=== PATIENT | female | born 2000 | race Caucasian/White ===

== ENCOUNTER 2024-05-01 18:55 | Emergency (ER) | payer OTHER, SELFPAY ==
--- NOTE | ~2024-05-01 | XR_ITS ---
EXAMINATION: XR shoulder RT min 2V DATE: 05/01/2024 19:31 INDICATION: Right shoulder pain. TECHNIQUE: 4 views of right shoulder were obtained. COMPARISON: None. FINDINGS: Alignment is normal. No fracture. Joint spaces are normal. IMPRESSION: 1. Normal right shoulder. Reviewed, dictated and finalized at location A. THCARE RISK CONTROL CONSULTANT IMPRESSION: 1. Normal right shoulder.
[2024-05-01 19:09] VITALS: BP 145/91; PULSE 66; RESP 18; TEMP 37; O2SAT 100
--- NOTE | 2024-05-01 19:12 | ED_ITS ---
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 Partner had their hand on her right upper arm area and she had her arm on her partners upper arm and when she was pulled forward she experienced some mild discomfort to her AC joint region. Patient reports that this morning when she arose she had discomfort to her right shoulder and as day has progressed when she raises right arm upward she has popping sensation and increased pain. Patient reports that she has not applied any ice or taken any OTC medication for her discomfort MD complaint: right shoulder pain Onset (ago): day(s) (little yesterday with increase today) Location: right and upper extremity (AC shoulder area) Radiation: non-radiation Severity: moderate Pain Consistency: intermittent Exacerbating factors: movement Treatments prior to arrival: none Related Data Allergies Allergy/AdvReac Type Severity Reaction Status Date / Time prednisone Allergy Unknown Verified 05/01/24 19:12 Review of Systems Review of Systems: CONSTITUTIONAL: Denies fever, chills, or sweats. EYES: Denies visual changes, redness, or discharge. ENT: Denies rhinorrhea, congestion, sore throat, or otalgia. CARDIOVASCULAR: Denies chest pain, palpitations, or edema. RESPIRATORY: Denies cough or dyspnea. GASTROINTESTINAL: Denies abdominal pain, nausea, vomiting, or diarrhea. GENITOURINARY: Denies dysuria or hematuria. SKIN: Denies rash or itching. MUSCULOSKELETAL: Denies back pain positive for right AC joint region pain especially with abduction of right arm, or myalgia. NEUROLOGIC: Denies headache, numbness, or weakness. PSYCHIATRIC: Denies anxiety or depression. All systems reviewed & are unremarkable except as noted in HPI and below [facility] Social History Social History (Updated 05/01/24 @ 19:56 by Rea Alvarez NP) Smoking status: Never smoker Alcohol intake: current Alcohol use details: social Substance use type: does not use Gender identity (if verbalized by the patient): Female Comments At time of signature, agree with nursing past medical, surgical, social and family history. There is no relevant family history pertinent to the presenting complaint Exam Narrative: GENERAL: Well-appearing, well-nourished, and in no acute distress. HEAD: Normocephalic, atraumatic. EYES: PERRLA and EOMI. ENT: Nares clear, no rhinorrhea or epistaxis. Mucous membranes moist. NECK: Supple. no lymphadenopathy CHEST: Clear to auscultation. No respiratory distress. no cough SAO2 100% on room air HEART: Regular rate and rhythm. No murmur heard. Normal peripheral pulses. ABDOMEN: Soft, nontender, nondistended, normal active bowel sounds. EXTREMITIES: Normal range of motion. No edema.Exception noted to right AC joint region with increase pain with abduction of right arm, no radiation of pain down arm or any tingling or numbness, strong right arm pulses noted, SKIN: Warm, dry, no rash. NEURO: No focal deficits. Alert and oriented x3. Course Course Emergency Course: Patient is aware of diagnosis, understands and agrees to treatment plan.? Anticipatory guidance given.? Patient agrees to follow-up as directed and is aware of reasons to seek care at the emergency department. Portions of this record may have been created with voice recognition software Level of Care: Express Care Visit Vital Signs Vital signs: Vital Signs Temperature 37.0 C 05/01/24 19:09 Pulse Rate 66 05/01/24 19:09 Respiratory Rate 18 05/01/24 19:09 Blood Pressure 145/91 H 05/01/24 19:09 Pulse Oximetry 100 05/01/24 19:09 Oxygen Delivery Room Air 05/01/24 19:09 Temperature 37.0 C 05/01/24 19:09 Pulse Rate 66 05/01/24 19:09 Respiratory Rate 18 05/01/24 19:09 Blood Pressure 145/91 H 05/01/24 19:09 Pulse Oximetry 100 05/01/24 19:09 Oxygen Delivery Room Air 05/01/24 19:09 Reviewed Medical Decision Making MDM Narrative Medical decision making narrative: Exam findings and imaging show no acute concerns or changes; patient is non- toxic appearing and is in no distress.? Patient is appropriate for outpatient treatment and follow-up Differential Diagnosis Differential Diagnosis: right shoulder pain, right shoulder strain, tendonitis right shoulder, fracture of right shoulder Medical Records Medical records reviewed: Yes I reviewed the external patient's medical records. Vital Signs Vital Signs: Vital Signs Temperature 37.0 C 05/01/24 19:09 Pulse Rate 66 05/01/24 19:09 Respiratory Rate 18 05/01/24 19:09 Blood Pressure 145/91 H 05/01/24 19:09 Pulse Oximetry 100 05/01/24 19:09 Oxygen Delivery Room Air 05/01/24 19:09 Temperature 37.0 C 05/01/24 19:09 Pulse Rate 66 05/01/24 19:09 Respiratory Rate 18 05/01/24 19:09 Blood Pressure 145/91 H 05/01/24 19:09 Pulse Oximetry 100 05/01/24 19:09 Oxygen Delivery Room Air 05/01/24 19:09 reviewed Imaging Data Attestation: I personally reviewed and interpreted this imaging study as follows: My impression: Normal right shoulder Radiologist's impression: [place] [address] [place] [address] XRay Report Signed Patient: Bravo Fall : 2000 MR#: [id number] Age: 23 Acct:[id number] Loc: [facility] ADM Date: 05/01/24Attending Dr: Ordering Physician: Rea Alvarez APRN Date of Service: 05/01/24 Procedure(s): XR shoulder RT min 2V Accession Number(s): [id number] cc: Rea Alvarez APRN; UNKNOWN,DOCTOR~ EXAMINATION: XR shoulder RT min 2V DATE: 05/01/2024 19:31 INDICATION: Right shoulder pain. TECHNIQUE: 4 views of right shoulder were obtained. COMPARISON: None. FINDINGS: Alignment is normal. No fracture. Joint spaces are normal. IMPRESSION: 1. Normal right shoulder. Reviewed, dictated and finalized at location A. TICING MD ANESTHESIOLOGIST Dictated By: Yamil Monet MD 12/13/24 1933 Signed By: <Electronically signed by Yamil Monet MD in OV> Critical Care Time Critical Care Time Critical Care Time: No Discharge Plan Discharge Clinical Impression: Right shoulder strain Patient Disposition: Home, Self-Care Condition: Stable Instructions: Antibiotic Form, Shoulder Pain (ED), Early Postoperative or Post Injury Shoulder Exercises (ED) Additional Instructions: Tylenol for lesser pain Ibuprofen regularly for the next 2-3 days for the inflammation Follow-up with orthopedic surgeon if no improvement Dr. Decker is ortho on- call [phone] Follow-up with PCP if further problems or concerns Ice to the area 20-30 minutes 4-6 times a day Elevate above heart Flexeril at bedtime only cannot drive while taking If your symptoms persist, change or worsen significantly before you can contact your personal physician then please, without delay, go to the emergency department for further evaluation. Follow-up with PCP in 7-10 days or sooner if needed Follow up with PCP soon in regards to your blood pressure which is elevated above threshold for referral. Blood pressure above 120/80 may indicate pre- hypertension. 145/91 Patient Language: Solomon Islander Prescriptions: New cyclobenzaprine 10 mg tablet 10 mg PO HS PRN (Reason: muscle spasm) Qty: 14 0RF Follow-up/Referrals: UNKNOWN,DOCTOR [Primary Care Provider] - Time of Disposition: 19:48 Quality Guillaume Coma Scale Eyes: Open Verbal: Oriented and Alert Motor: Follows Commands Jbphh Coma Total Score: 15
--- OUTSIDE RECORDS SUMMARY | 2024-05-05 13:27 | XMS_ITS | Encounter Summary ---
Author Organization [facility] Care Team Providers Care Chiropractic Care Name Role Phone Provider, Unknown Primary Care Provider Unavaila ble Encounter Details Date Type Department Care Team (Latest Contact Info) Description 12/03/2023 Travel Social History Tobacco Use Types Packs/Day Years Used Date Smoking Tobacco: Never Assessed Comments Unknown Sex and Gender Information Value Date Recorded Sex Assigned at Not on file Legal Sex Female 10:43 AM CDT Gender Identity Not on file Sexual Orientation Not on file documented as of this encounter Plan of Treatment Not on file documented as of this encounter Visit Diagnoses Not on filedocumented in this encounter Care Teams Chiropractic Care Relationship Specialty Start Date End Date Provider, Unknown UNKNOWN PCP - General 12/03/23 documented as of this encounter
--- OUTSIDE RECORDS SUMMARY | 2024-05-05 13:27 | XMS_ITS | Encounter Summary ---
Author Organization [facility] Care Team Providers Care Shale Planer Operator Name Role Phone Provider, Unknown Primary Care Provider Unavaila ble Encounter Details Date Type Department Care Team (Latest Contact Info) Description 05/02/2024 Travel Social History Tobacco Use Types Packs/Day Years Used Date Smoking Tobacco: Never Smokeless Tobacco: Never Alcohol Use Standard Drinks/Week Comments Not Currently 0 (1 standard drink = 0.6 oz pur e alcohol) Comments No Sex and Gender Information Value Date Recorded Sex Assigned at Not on file Legal Sex Female 10:43 AM CDT Gender Identity Not on file Sexual Orientation Not on file documented as of this encounter Plan of Treatment Not on file documented as of this encounter Visit Diagnoses Not on filedocumented in this encounter Care Teams Shale Planer Operator Relationship Specialty Start Date End Date Provider, Unknown UNKNOWN PCP - General 12/03/23 documented as of this encounter
--- OUTSIDE RECORDS SUMMARY | 2024-05-05 13:27 | XMS_ITS | Encounter Summary ---
Author Organization [facility] Address [address] [place] [address] Phone Care Team Providers Care Research Specialist Name Role Phone Provider, Unknown Primary Care Provider Unavaila ble Reason for Visit * Reason Comments Shoulder Pain Encounter Details Date Type Department Care Team (Late st Contact Info) Description 05/02/2024 8:59 PM DIRT SHOVELER - 05/02/2024 10:37 PM DIRT SHOVELER Emergency [facility] Emergency [address] [place] [address] Montez Damian MD [address] [place] [address] Strain of right shoulder, initial encounter Discharge Disposition: Discharged to home or Selfcare Social History Tobacco Use Types Packs/Day Years Used Date Smoking Tobacco: Never Smokeless Tobacco: Never Tobacco Cessation:Counseling Given: Not Answered Alcohol Use Standard Drinks/Week Comments Not Currently 0 (1 standard drink = 0.6 oz pur e alcohol) Comments No Sex and Gender Information Value Date Recorded Sex Assigned at Not on file Legal Sex Female 10:43 AM CDT Gender Identity Not on file Sexual Orientation Not on file documented as of this encounter Last Filed Vital Signs Vital Sign Reading Time Taken Comments Blood Pressure 122/84 05/02/2024 10:30 PM DIRT SHOVELER Pulse 60 05/02/2024 10:30 PM DIRT SHOVELER Temperature 36.6 ??C (97.9 ??F) 05/02/2024 10:[address] Respiratory Rate 16 05/02/2024 10:30 PM DIRT SHOVELER Oxygen Saturation 100% 05/02/2024 10:30 PM DIRT SHOVELER Inhaled Oxygen Concentration - - Weight 54.4 kg (120 lb) 05/02/2024 9:03 PM DIRT SHOVELER Height 152.4 cm (5') 05/02/2024 9:03 PM DIRT SHOVELER Body Mass Index 23.44 05/02/2024 9:03 PM DIRT SHOVELER documented in this encounter Discharge Instructions * Discharge Instructions* Montez Damian MD - 05/02/2024 10:18 PM DIRT SHOVELER Wear the sling for protection and comfort. Follow up with your regular doctor this coming week for recheck. Take naproxen as directed. Watch her stomach for any side effects. SHOVELER * Attachments The following attachments cannot be sent through Care Everywhere. * Muscle Strain (Upper [place]) documented in this encounter Medications at Time of Discharge naproxen (NAPROSYN) 375 MG Tablet Take 1 Tablet by mouth 2 times daily (with meals). 30 Tablet 05/02/2024 documented as of this encounter ED Notes * Tony Daniels RN - 05/02/2024 10:35 PM CST Patient discharged. Discharge instructions and patient educational material reviewed with patient; questions and concerns addressed; patient verbalizes understanding, using teach back. Patient was given 1 prescriptions. . Patient discharged per ambulatory mode with self as responsible green party. SHOVELER * Montez Damian MD - 05/02/2024 10:09 PM CST Chief Complaint Patient presents with Shoulder Pain Patient was a 23-year-old female who injured her right upper arm doing exercises at her workplace. She was states she felt a pop type sensation and now he was having pain with any movement. She has not noticed any deformity or swelling. There is no distal numbness present. No current facility-administered medications for this encounter. Current Outpatient Medications Medication Sig Dispense Refill naproxen (NAPROSYN) 375 MG Tablet Take 1 Tablet by mouth 2 times daily (with meals). 30 Tablet 0 Allergies Allergen Reactions Prednisone Rash History reviewed. No pertinent past medical history. No past surgical history on file. Social History Socioeconomic History Marital status: Single Spouse name: Not on file Number of children: Not on file Years of education: Not on file Highest education level: Not on file Occupational History Not on file Tobacco Use Smoking status: Never Smokeless tobacco: Never Substance and Sexual Activity Alcohol use: Not Currently Drug use: Never Sexual activity: Not on file Other Topics Concern Not on file Social History Narrative Not on file Social Drivers of Health Financial Resource Needs: Not on file Food Insecurity Needs: Not on file Transportation Needs: Not on file Physical Activity: Not on file Stress: Not on file Social Integration: Not on file Personal Safety: Not on file Housing Stability: Not on file BP 119/73 Pulse 55 Temp 97.7 ??F (36.5 ??C) (Tympanic) Resp 16 Ht 5' (1.524 m) Wt 120 lb (54.4 kg) LMP 05/02/2024 SpO2 100% BMI 23.44 kg/m?? Review of Systems Constitutional: Negative for chills and fever. HENT: Negative for congestion, ear pain, rhinorrhea and sore throat. Eyes: Negative for discharge. Respiratory: Negative for cough, chest tightness, shortness of breath and wheezing. Cardiovascular: Negative for chest pain and palpitations. Gastrointestinal: Negative for abdominal pain, diarrhea, nausea and vomiting. Genitourinary: Negative for difficulty urinating and menstrual problem. Musculoskeletal: Positive for arthralgias (right shoulder). Negative for myalgias. Skin: Negative for rash and wound. Neurological: Negative for dizziness, syncope, numbness and headaches. All other systems reviewed and are negative. Physical Exam Vitals and nursing note reviewed. Constitutional: General: She is not in acute distress. Appearance: She is well-developed. She is not diaphoretic. HENT: Head: Normocephalic and atraumatic. Eyes: Conjunctiva/sclera: Conjunctivae normal. Pupils: Pupils are equal, round, and reactive to light. Cardiovascular: Rate and Rhythm: Normal rate and regular rhythm. Heart sounds: Normal heart sounds. No murmur heard. No friction rub. No gallop. Pulmonary: Effort: Pulmonary effort is normal. No respiratory distress. Breath sounds: Normal breath sounds. No wheezing or rales. Abdominal: General: Bowel sounds are normal. There is no distension. Palpations: Abdomen is soft. Tenderness: There is no abdominal tenderness. There is no guarding or rebound. Musculoskeletal: General: No deformity. Right shoulder: Tenderness present. No swelling or deformity. Decreased range of motion. Normal pulse. Right upper arm: Tenderness and bony tenderness present. Cervical back: Normal range of motion and neck supple. Lymphadenopathy: Cervical: No cervical adenopathy. Skin: General: Skin is warm and dry. Coloration: Skin is not pale. Findings: No erythema or rash. Neurological: Mental Status: She is alert and oriented to person, place, and time. Psychiatric: Behavior: Behavior normal. Thought Content: Thought content normal. Judgment: Judgment normal. Procedures Patient was right upper extremity he was placed in a sling for comfort by the certified orthotist.. Post application evaluation revealed normal color, sensation, and capillary refill. No results found for this or any previous visit (from the past 24 hours). Imaging Results XR SHOULDER COMPLETE RIGHT (Final result) Result time 05/02/24 21:51:44 Final result by Home Valerio MD (05/02/24 21:51:44) Impression: IMPRESSION: Negative exam. Narrative: EXAM DESCRIPTION: XR SHOULDER COMPLETE RIGHT REASON FOR STUDY: pt c/o RT shoulder pain after some hands on training x 3 days. pt states her shoulder pops with movement. no hx of surgery TECHNIQUE: 4 view(s) of the right shoulder COMPARISON: None FINDINGS: There is no fracture or dislocation. No arthritis were seen. THIS IS AN ELECTRONICALLY VERIFIED FINAL REPORT 05/02/2024 9:49 PM - Electronically signed by Tripp Valerio M.D. LAKESHA: LAKESHA Report ID: [id number] Reading Location: [place] [address] Medical Decision Making Clinical Impression 1. Strain of right shoulder, initial encounter Disposition: Discharge Patient presents emergency room with right shoulder pain after an injury at work. X-rays of the right shoulder were unremarkable. This injury appears to be a sprain or strain type injury. I explainedthis to the patient. Will place her in a sling for comfort and give her a prescription for an anti-inflammatory. I advised her to follow up with her primary care provider for recheck this coming week. SHOVELER * Tony Daniels RN - 05/02/2024 9:30 PM CST Patient ambulatory to Xray. SHOVELER * Tony Daniels RN - 05/02/2024 9:19 PM CST Patient assessed. Range of motion to right arm limited and patient endorses 5/10 pain with movement. SHOVELER * Gretel Armenta RN - 05/02/2024 9:07 PM CST Pt to ED with c/o right shoulder pain 3 days. Denies any recent injuries. States she did do some hands on training for work this week. Reports she feel a pop when she moves her arm. PMS + SHOVELER documented in this encounter Plan of Treatment Not on file documented as of this encounter Procedures Procedure Name Priority Date/Time Associated Diagnosis Comments XR SHOULDER COMPLETE RIGHT STAT 05/02/2024 9:37 PM DIRT SHOVELER documented in this encounter Results * XR SHOULDER COMPLETE RIGHT (05/02/2024 9:37 PM DIRT SHOVELER) Anatomical Region Laterality Modality UPPER EXTREMITY, shoulder Right Digita l Radiography 05/02/2024 9:49 PM DIRT SHOVELER Impressions 05/02/2024 9:51 PM DIRT SHOVELER IMPRESSION: Negative exam. Narrative 05/02/2024 9:51 PM DIRT SHOVELER EXAM DESCRIPTION: XR SHOULDER COMPLETE RIGHT REASON FOR STUDY: pt c/o RT shoulder pain after some hands on training x 3 days. pt states her shoulder pops with movement. no hx of surgery ?? TECHNIQUE: 4 ??view(s) of the ??right shoulder COMPARISON: None FINDINGS: There is no fracture or dislocation. ??No arthritis were seen. THIS IS AN ELECTRONICALLY VERIFIED FINAL REPORT 05/02/2024 9:49 PM - Electronically signed by ??Tripp Valerio M.D. LAKESHA: LAKESHA D: ??05/02/2024 9:49 PM T: ??05/02/2024 9:49 PM Report ID: [id number] Reading Location: ??[id number] Procedure Note Home Valerio MD - 05/02/2024 EXAM DESCRIPTION: XR SHOULDER COMPLETE RIGHT REASON FOR STUDY: pt c/o RT shoulder pain after some hands on training x 3 days. pt states her shoulder pops with movement. no hx of surgery TECHNIQUE: 4 view(s) of the right shoulder COMPARISON: None FINDINGS: There is no fracture or dislocation. No arthritis were seen. THIS IS AN ELECTRONICALLY VERIFIED FINAL REPORT 05/02/2024 9:49 PM - Electronically signed by Tripp Valerio M.D. LAKESHA: LAKESHA Report ID: [id number] Reading Location: [id number] IMPRESSION: Negative exam. Montez Damian MD [facility] DIAGNOSTIC ORDERABLES Final Result documented in this encounter Visit Diagnoses Diagnosis Strain of right shoulder, initial encounter- Primary documented in this encounter Care Teams Research Specialist Relationship Specialty Start Date End Date Provider, Unknown UNKNOWN PCP - General 12/03/23 documented as of this encounter
--- OUTSIDE RECORDS SUMMARY | 2024-05-05 13:27 | XMS_ITS | Clinical Summary ---
Author Organization [facility] Address [address] [place] [address] Phone Care Team Providers Care Photo Studio Assistant Name Role Phone Provider, Unknown Primary Care Provider Unavaila ble Allergies Active Allergy Reactions Criticality Noted Date Comments Prednisone Rash 05/02/2024 Medications naproxen (NAPROSYN) 375 MG Tablet Take 1 Tablet by mouth 2 times daily (with meals). 30 Tablet 05/02/2024 Active Encounters Date Type Department Care Team Description 05/02/2024 8:59 PM EAR NOSE AND THROAT SPECIALIST - 05/02/2024 10:37 PM EAR NOSE AND THROAT SPECIALIST Emergency [facility] Emergency [address] [place] [address] Montez Damian MD Strain of right shoulder, initial encounter Discharge Disposition: Discharged to home or Selfcare 05/02/2024 Travel from Last 3 Months Social History Tobacco Use Types Packs/Day Years [...] on file Sexual Orientation Not on file Last Filed Vital Signs Vital Sign Reading Time Taken Comments Blood Pressure 122/84 05/02/2024 10:30 PM EAR NOSE AND THROAT SPECIALIST Pulse 60 05/02/2024 10:30 PM EAR NOSE AND THROAT SPECIALIST Temperature 36.6 ??C (97.9 ??F) 05/02/2024 10:[address] Respiratory Rate 16 05/02/2024 10:30 PM EAR NOSE AND THROAT SPECIALIST Oxygen Saturation 100% 05/02/2024 10:30 PM EAR NOSE AND THROAT SPECIALIST Inhaled Oxygen Concentration - - Weight 54.4 kg (120 lb) 05/02/2024 9:03 PM EAR NOSE AND THROAT SPECIALIST Height 152.4 cm (5') 05/02/2024 9:03 PM EAR NOSE AND THROAT SPECIALIST Body Mass Index 23.44 05/02/2024 9:03 PM EAR NOSE AND THROAT SPECIALIST Plan of Treatment Health Maintenance Due Date Last Done Comments Hepatitis C Virus (HCV) Screening 2001 Pap Smear 2022 Influenza Immunization (#1) 2024 SARS-COV-2 Immunization ( season) 2024 01/06/2021, 12/16/2020 Respiratory Syncytial Virus (RSV) Immunization (Adult) (1 - 1-dose 75+ series) 2076 Hepatitis B Immunization Completed 003, 02/05/2002, 2001 Pneumococcal Immunization Combined Completed 10/27/2002, 08/03/2002, 04/13/2002, Additional history exists Human Papillomavirus (HPV) Immunization Completed 07/09/2016, 01/31/2016, 11/22/2015 Meningococcal Immunization (ACWY) Completed 12/03/2018, 12/08/2012 Meningococcal B Immunization Completed 01/10/2019, 12/03/2018 TdaP Immunization Completed 01/17/2022, 12/08/2012 Rotavirus Immunization Aged Out No lo nger eligible based on patient's age to complete this topic Procedures Procedure Name Priority Date/Time Associated Diagnosis Comments XR SHOULDER COMPLETE RIGHT STAT 05/02/2024 9:37 PM EAR NOSE AND THROAT SPECIALIST from Last 3 Months Results * XR SHOULDER COMPLETE RIGHT (05/02/2024 9:37 PM EAR NOSE AND THROAT SPECIALIST) Anatomical Region Laterality Modality UPPER EXTREMITY, shoulder Right Digita l Radiography 05/02/2024 9:49 PM EAR NOSE AND THROAT SPECIALIST Impressions 05/02/2024 9:51 PM EAR NOSE AND THROAT SPECIALIST IMPRESSION: Negative exam. Narrative 05/02/2024 9:51 PM EAR NOSE AND THROAT SPECIALIST EXAM DESCRIPTION: XR SHOULDER COMPLETE RIGHT REASON [...] PM T: ??05/02/2024 9:49 PM Report ID: [id number] Reading Location: ??[id number] Procedure Note Home Valerio MD - 05/02/2024 [...] Tripp Valerio M.D. LAKESHA: LAKESHA Report ID: [id number] Reading Location: [id number] IMPRESSION: Negative exam. Montez Damian MD IMG DIAGNOSTIC ORDERABLES Final Result from Last 3 Months Care Teams Photo Studio Assistant Relationship Specialty Start Date End Date Provider, Unknown UNKNOWN PCP - General 12/03/23
--- OUTSIDE RECORDS SUMMARY | 2024-05-05 13:28 | XMS_ITS | Encounter Summary ---
Author Organization [facility] Address [address] [place] [address] Phone Care Team Providers Care Ui Engineer Name Role Phone Provider, Unknown Primary Care Provider Unavaila ble Reason for Referral * Radiology Services (Routine) - Closed Specialty Diagnoses / Procedures Referred By Contac t Referred To Contact Radiology Diagnoses Physical exam, pre-employment Procedures XR CHEST SINGLE VIEW Isaías Calderon [address] [address] Phone: tel: fax: Referral ID Status Reason Start Date Expiration Date Visits Re quested Visits Authorized [id number] Closed 12/03/2023 1 1 Reason for Visit * Radiology Services (Routine) - Closed Specialty Diagnoses / Procedures Referred By Contac t Referred To Contact Radiology Diagnoses Physical exam, pre-employment Procedures XR CHEST SINGLE VIEW Isaías Calderon [address] [address] Phone: tel: fax: Referral ID Status Reason Start Date Expiration Date Visits Re quested Visits Authorized [id number] Closed 12/03/2023 1 1 Encounter Details Date Type Department Care Team (Late st Contact Info) Description 12/03/2023 11:03 AM CDT Hospital Encounter [facility] Diagnostic Radiology [address] [place] [address] Isaías Calderon [address] [facility] [address] [place] [address] Discharge Disposition: Discharged to home or Selfcare [...] Name Priority Date/Time Associated Diagnosis Comments XR CHEST SINGLE VIEW Routine 12/03/2023 12:02 PM CDT Physical exam, pre-employment documented in this encounter Results * XR CHEST SINGLE VIEW (12/03/2023 12:02 PM CDT) Anatomical Region Laterality Modality Chest N/A Digital Radiogra phy 12/05/2023 8:22 AM CDT Impressions 12/05/2023 8:25 AM CDT IMPRESSION: No radiographic evidence of acute cardiopulmonary disease Narrative 12/05/2023 8:25 AM CDT EXAM DESCRIPTION: XR CHEST SINGLE VIEW REASON FOR STUDY: Physical exam for new emplyment ?? TECHNIQUE: Single ??radiographic view(s) of the chest. COMPARISON: None FINDINGS: The heart appears normal in size. ??No airspace consolidation or pleural effusion is seen. ?? THIS IS AN ELECTRONICALLY VERIFIED FINAL REPORT 12/05/2023 8:22 AM - Electronically signed by ??Yifan Allan M.D., JR: D: ??12/05/2023 8:22 AM T: ??12/05/2023 8:22 AM Report ID: [id number] Reading Location: ??[id number] Procedure Note Yifan Allan MD - 12/05/2023 EXAM DESCRIPTION: XR CHEST SINGLE VIEW REASON FOR STUDY: Physical exam for new emplyment TECHNIQUE: Single radiographic view(s) of the chest. COMPARISON: None FINDINGS: The heart appears normal in size. No airspace consolidation or pleural effusion is seen. THIS IS AN ELECTRONICALLY VERIFIED FINAL REPORT 12/05/2023 8:22 AM - Electronically signed by Yifan Allan M.D. JR: Report ID: [id number] Reading Location: [place] [address] IMPRESSION: No radiographic evidence of acute cardiopulmonary disease us Isaías HER DIAGNOSTIC ORDERABLES F inal Result documented in this encounter Visit Diagnoses Diagnosis Physical exam, pre-employment Health examination of defined subpopulation documented in this encounter Care Teams Ui Engineer Relationship Specialty Start Date End Date Provider, Unknown UNKNOWN PCP - General 12/03/23 documented as of this encounter
--- OUTSIDE RECORDS SUMMARY | 2024-05-05 13:28 | XMS_ITS | Encounter Summary ---
Author Organization [facility] Address [address] [place] [address] Phone Care Team Providers Care Senior Visual Designer Name Role Phone Provider, Unknown Primary Care Provider Unavaila ble Reason for Referral * Radiology Services (Routine) - Closed Specialty Diagnoses / Procedures Referred By Contac t Referred To Contact Radiology Diagnoses Physical exam, pre-employment Procedures XR LUMBAR SPINE 2 OR 3 VIEWS Isaías Calderon [address] [address] Phone: tel: fax: Referral ID Status Reason Start Date Expiration Date Visits Re quested Visits Authorized [id number] Closed 12/03/2023 1 1 Reason for Visit * Radiology Services (Routine) - Closed Specialty Diagnoses / Procedures Referred By Contac t Referred To Contact Radiology Diagnoses Physical exam, pre-employment Procedures XR LUMBAR SPINE 2 OR 3 VIEWS Isaías Calderon [address] [address] Phone: tel: fax: Referral ID Status Reason Start Date Expiration Date Visits Re quested Visits Authorized [id number] Closed 12/03/2023 1 1 Encounter Details Date Type Department Care Team (Late st Contact Info) Description 12/03/2023 11:04 AM CDT - 12/03/2023 11:59 PM CDT Hospital Encounter [facility] Diagnostic Radiology 1 [place] [address] YumikoIsaías Khanh [address] [place] [address] Discharge Disposition: Discharged to home or Selfcare [...] Name Priority Date/Time Associated Diagnosis Comments XR LUMBAR SPINE 2 OR 3 VIEWS Routine 12/03/2023 12:01 PM CDT Physical exam, pre-employment documented in this encounter Results * XR LUMBAR SPINE 2 OR 3 VIEWS (12/03/2023 12:01 PM CDT) Anatomical Region Laterality Modality Spine, L-spine N/A Digital Radiogra phy 12/04/2023 12:1 8 PM CDT Impressions 12/04/2023 12:20 PM CDT IMPRESSION: Normal lumbar spine evaluation. Narrative 12/04/2023 12:20 PM CDT EXAM DESCRIPTION: XR LUMBAR SPINE 2 OR 3 VIEWS REASON FOR STUDY: Physical exam for new employment ?? FINDINGS: Three views submitted without comparison. No acute fractures are identified. ??Alignment is normal. ??The intervertebral disc space heights are normal. THIS IS AN ELECTRONICALLY VERIFIED FINAL REPORT 12/04/2023 12:18 PM - Electronically signed by ??Richie Lyn M.D. MF: MIAN D: ??12/04/2023 12:18 PM T: ??12/04/2023 12:18 PM Report ID: [id number] Reading Location: ??[id number] Procedure Note Richie Lyn MD - 12/04/2023 EXAM DESCRIPTION: XR LUMBAR SPINE 2 OR 3 VIEWS REASON FOR STUDY: Physical exam for new employment FINDINGS: Three views submitted without comparison. No acute fractures are identified. Alignment is normal. The intervertebral disc space heights are normal. THIS IS AN ELECTRONICALLY VERIFIED FINAL REPORT 12/04/2023 12:18 PM - Electronically signed by Richie Lyn M.D. MF: MIAN Report ID: [id number] Reading Location: [id number] IMPRESSION: Normal lumbar spine evaluation. Isaías HER DIAGNOSTIC ORDERABLES F inal Result documented in this encounter Visit Diagnoses Diagnosis Physical exam, pre-employment Health examination of defined subpopulation documented in this encounter Care Teams Senior Visual Designer Relationship Specialty Start Date End Date Provider, Unknown UNKNOWN PCP - General 12/03/23 documented as of this encounter
--- OUTSIDE RECORDS SUMMARY | 2024-05-05 13:28 | XMS_ITS | Encounter Summary ---
Author Organization [facility] Address [address] [place] [address] Phone Care Team Providers Care Olericulturist Name Role Phone Provider, Unknown Primary Care Provider Unavaila ble Reason for Referral * Radiology Services (Routine) - Closed Specialty Diagnoses / Procedures Referred By Contac t Referred To Contact Radiology Diagnoses Physical exam, pre-employment Procedures XR LUMBAR SPINE 2 OR 3 VIEWS Isaías Calderon [address] [address] Phone: tel: fax: Referral ID Status Reason Start Date Expiration Date Visits Re quested Visits Authorized [id number] Closed 12/03/2023 1 1 * Radiology Services (Routine) - Closed Specialty Diagnoses / Procedures Referred By Contac t Referred To Contact Radiology Diagnoses Physical exam, pre-employment Procedures XR CHEST SINGLE VIEW Isaías Calderon [address] [address] Phone: tel: fax: Referral ID Status Reason Start Date Expiration Date Visits Re quested Visits Authorized [id number] Closed 12/03/2023 1 1 Encounter Details Date Type Department Care Team (Late st Contact Info) Description 12/03/2023 Transcribe Orders [facility] Patient Access Admitting 1 [place] [address] Isaías Calderon [address] [facility] [address] [place], [place] [id number] Physical exam, pre-employment (Primary Dx) Social History Tobacco Use Types Packs/Day Years Used Date Smoking Tobacco: Never Assessed Comments Unknown Sex and Gender Information Value Date Recorded Sex Assigned at Not on file Legal Sex Female 10:43 AM CDT Gender Identity Not on file Sexual Orientation Not on file documented as of this encounter Plan of Treatment Not on file documented as of this encounter Results * XR CHEST SINGLE [...] AM - Electronically signed by ??Yifan Allan M.D. JR: D: ??12/05/2023 8:22 AM T: ??12/05/2023 8:22 AM Report ID: [id number] Reading Location: ??[id number] Procedure Note Yifan Allan MD - 12/05/2023 [...] by Yifan Allan M.D. JR: Report ID: [id number] Reading Location: [id number] IMPRESSION: No radiographic evidence of acute cardiopulmonary disease us Panayiotis A Yumiko IMG DIAGNOSTIC ORDERABLES F inal Result * XR LUMBAR SPINE 2 OR 3 [...] 12:18 PM - Electronically signed by ??Richie PAPPAS: MIAN D: ??12/04/2023 12:18 PM T: ??12/04/2023 12:18 PM Report ID: [id number] Reading Location: ??[id number] Procedure Note Richie Lyn MD - 12/04/2023 EXAM DESCRIPTION: XR LUMBAR SPINE 2 OR 3 VIEWS REASON FOR STUDY: Physical exam for new employment FINDINGS: Three views submitted without comparison. No acute fractures are identified. Alignment is normal. The intervertebral disc space heights are normal. THIS IS AN ELECTRONICALLY VERIFIED FINAL REPORT 12/04/2023 12:18 PM - Electronically signed by Richie Lyn M.D. MF: MF Report ID: [id number] Reading Location: [id number] IMPRESSION: Normal lumbar spine evaluation. Isaías Calderon Kathryn DIAGNOSTIC ORDERABLES F inal Result documented in this encounter Visit Diagnoses Diagnosis Physical exam, pre-employment- Primary Health examination of defined subpopulation Physical exam, pre-employment Health examination of defined subpopulation Physical exam, pre-employment Health examination of defined subpopulation documented in this encounter Care Teams Olericulturist Relationship Specialty Start Date End Date Provider, Unknown UNKNOWN PCP - General 12/03/23 documented as of this encounter
--- OUTSIDE RECORDS SUMMARY | 2024-05-05 13:51 | XMS_ITS | Clinical Summary ---
Author Organization [facility] Address [address] [place] [address] Phone Care Team Providers Care Pole Shaver Helper Name Role Phone Provider, Unknown Primary Care Provider Unavaila ble Allergies Active Allergy Reactions Criticality Noted Date Comments Prednisone Rash 05/02/2024 Medications naproxen (NAPROSYN) 375 MG Tablet Take 1 Tablet by mouth 2 times daily (with meals). 30 Tablet 05/02/2024 Active Encounters Date Type Department Care Team Description 05/02/2024 8:59 PM MALT HOUSE KILN OPERATOR - 05/02/2024 10:37 PM MALT HOUSE KILN OPERATOR Emergency [facility] [address] [place] [address] Montez Damian MD Strain of right shoulder, [...] Comments Blood Pressure 122/84 05/02/2024 10:30 PM MALT HOUSE KILN OPERATOR Pulse 60 05/02/2024 10:30 PM MALT HOUSE KILN OPERATOR Temperature 36.6 ??C (97.9 ??F) 05/02/2024 10:[address] Respiratory Rate 16 05/02/2024 10:30 PM MALT HOUSE KILN OPERATOR Oxygen Saturation 100% 05/02/2024 10:30 PM MALT HOUSE KILN OPERATOR Inhaled Oxygen Concentration - - Weight 54.4 kg (120 lb) 05/02/2024 9:03 PM MALT HOUSE KILN OPERATOR Height 152.4 cm (5') 05/02/2024 9:03 PM MALT HOUSE KILN OPERATOR Body Mass Index 23.44 05/02/2024 9:03 PM MALT HOUSE KILN OPERATOR Plan of Treatment Health Maintenance Due Date [...] SHOULDER COMPLETE RIGHT STAT 05/02/2024 9:37 PM MALT HOUSE KILN OPERATOR from Last 3 Months Results * XR SHOULDER COMPLETE RIGHT (05/02/2024 9:37 PM MALT HOUSE KILN OPERATOR) Anatomical Region Laterality Modality UPPER EXTREMITY, shoulder Right Digita l Radiography 05/02/2024 9:49 PM MALT HOUSE KILN OPERATOR Impressions 05/02/2024 9:51 PM MALT HOUSE KILN OPERATOR IMPRESSION: Negative exam. Narrative 05/02/2024 9:51 PM MALT HOUSE KILN OPERATOR EXAM DESCRIPTION: XR SHOULDER COMPLETE RIGHT REASON [...] PM T: ??05/02/2024 9:49 PM Report ID: [id number] Reading Location: ??[id number] Procedure Note Home Valerio MD - 05/02/2024 [...] Tripp Valerio M.D. LAKESHA: LAKESHA Report ID: [id number] Reading Location: [id number] IMPRESSION: Negative exam. Montez Damian MD IMG DIAGNOSTIC ORDERABLES Final Result from Last 3 Months Care Teams Pole Shaver Helper Relationship Specialty Start Date End Date Provider, Unknown UNKNOWN PCP - General 12/03/23
--- OUTSIDE RECORDS SUMMARY | 2024-05-05 13:52 | XMS_ITS | Encounter Summary ---
Author Organization [facility] Address [address] [place] [address] Phone Care Team Providers Care Hybrid Car Mechanic Name Role Phone Provider, Unknown Primary Care Provider Unavaila ble Reason for Visit * Reason Comments Shoulder Pain Encounter Details Date Type Department Care Team (Late st Contact Info) Description 05/02/2024 8:59 PM DIETETIC AIDE - 05/02/2024 10:37 PM DIETETIC AIDE Emergency [facility] Emergency 1 [place] [address] Montez Damian MD [address] [place] [address] Strain of right shoulder, initial encounter Discharge [...] Comments Blood Pressure 122/84 05/02/2024 10:30 PM DIETETIC AIDE Pulse 60 05/02/2024 10:30 PM DIETETIC AIDE Temperature 36.6 ??C (97.9 ??F) 05/02/2024 10:[address] Respiratory Rate 16 05/02/2024 10:30 PM DIETETIC AIDE Oxygen Saturation 100% 05/02/2024 10:30 PM DIETETIC AIDE Inhaled Oxygen Concentration - - Weight 54.4 kg (120 lb) 05/02/2024 9:03 PM DIETETIC AIDE Height 152.4 cm (5') 05/02/2024 9:03 PM DIETETIC AIDE Body Mass Index 23.44 05/02/2024 9:03 PM DIETETIC AIDE documented in this encounter Discharge Instructions * Discharge Instructions* Montez Damian MD - 05/02/2024 10:18 PM DIETETIC AIDE Wear the sling for protection and comfort. Follow up with your regular doctor this coming week for recheck. Take naproxen as directed. Watch her stomach for any side effects. ETIC AIDE * Attachments The following attachments cannot be sent through Care Everywhere. * Muscle Strain (Malay) documented in this encounter Medications at Time [...] per ambulatory mode with self as responsible alliance party. ETIC AIDE * Montez Damian MD - 05/02/2024 10:09 [...] a sling for comfort by the certified orthotic fitter.. Post application evaluation revealed normal color, sensation, [...] Tripp Valerio M.D. LAKESHA: LAKESHA Report ID: [id number] Reading Location: [place] [address] Medical Decision Making Clinical Impression 1. Strain [...] care provider for recheck this coming week. ETIC AIDE * Tony Daniels RN - 05/02/2024 9:30 PM CST Patient ambulatory to Xray. ETIC AIDE * Tony Daniels RN - 05/02/2024 9:19 PM CST Patient assessed. Range of motion to right arm limited and patient endorses 5/10 pain with movement. ETIC AIDE * Gretel Armenta RN - 05/02/2024 9:07 PM CST Pt to ED with c/o right shoulder pain 3 days. Denies any recent injuries. States she did do some hands on training for work this week. Reports she feel a pop when she moves her arm. PMS + ETIC AIDE documented in this encounter Plan of Treatment Not on file documented as of this encounter Procedures Procedure Name Priority Date/Time Associated Diagnosis Comments XR SHOULDER COMPLETE RIGHT STAT 05/02/2024 9:37 PM DIETETIC AIDE documented in this encounter Results * XR SHOULDER COMPLETE RIGHT (05/02/2024 9:37 PM DIETETIC AIDE) Anatomical Region Laterality Modality UPPER EXTREMITY, shoulder Right Digita l Radiography 05/02/2024 9:49 PM DIETETIC AIDE Impressions 05/02/2024 9:51 PM DIETETIC AIDE IMPRESSION: Negative exam. Narrative 05/02/2024 9:51 PM DIETETIC AIDE EXAM DESCRIPTION: XR SHOULDER COMPLETE RIGHT REASON [...] PM T: ??05/02/2024 9:49 PM Report ID: [id number] Reading Location: ??[id number] Procedure Note Home Valerio MD - 05/02/2024 [...] Tripp Valerio M.D. LAKESHA: LAKESHA Report ID: [id number] Reading Location: [id number] IMPRESSION: Negative exam. Montez Damian MD [facility] [place] DIAGNOSTIC ORDERABLES Final Result documented in this encounter Visit Diagnoses Diagnosis Strain of right shoulder, initial encounter- Primary documented in this encounter Care Teams Hybrid Car Mechanic Relationship Specialty Start Date End Date Provider, Unknown UNKNOWN PCP - General 12/03/23 documented as of this encounter
--- OUTSIDE RECORDS SUMMARY | 2024-05-05 13:52 | XMS_ITS | Encounter Summary ---
Author Organization [facility] Address [address] [place] [address] Phone Care Team Providers Care Floor Molder Name Role Phone Provider, Unknown Primary Care Provider Unavaila ble Reason for Referral * Radiology Services (Routine) - Closed Specialty Diagnoses / Procedures Referred By Contac t Referred To Contact Radiology Diagnoses Physical exam, pre-employment Procedures XR LUMBAR SPINE 2 OR 3 VIEWS Isaías Calderon [address] [address] Phone: tel: fax: Referral ID Status Reason Start Date Expiration Date Visits Re quested Visits Authorized [id number] Closed 12/03/2023 1 1 Reason for Visit * Radiology Services (Routine) - Closed Specialty Diagnoses / Procedures Referred By Contac t Referred To Contact Radiology Diagnoses Physical exam, pre-employment Procedures XR LUMBAR SPINE 2 OR 3 VIEWS Isaías Calderon [address] [address] Phone: tel: fax: Referral ID Status Reason Start Date Expiration Date Visits Re quested Visits Authorized [id number] Closed 12/03/2023 1 1 Encounter Details Date Type Department Care Team (Late st Contact Info) Description 12/03/2023 11:04 AM CDT - 12/03/2023 11:59 PM CDT Hospital Encounter [facility] Diagnostic Radiology 1 [place] [address] YumikoIsaías Khanh [address] [place] [address] Discharge Disposition: Discharged to home or Selfcare [...] PM T: ??12/04/2023 12:18 PM Report ID: [id number] Reading Location: ??[id number] Procedure Note Richie Lyn MD - 12/04/2023 [...] Richie Lyn M.D. MF: MIAN Report ID: [id number] Reading Location: [id number] IMPRESSION: Normal lumbar spine evaluation. Isaías HER DIAGNOSTIC ORDERABLES F inal Result documented in this encounter Visit Diagnoses Diagnosis Physical exam, pre-employment Health examination of defined subpopulation documented in this encounter Care Teams Floor Molder Relationship Specialty Start Date End Date Provider, Unknown UNKNOWN PCP - General 12/03/23 documented as of this encounter
--- OUTSIDE RECORDS SUMMARY | 2024-05-05 13:52 | XMS_ITS | Encounter Summary ---
Author Organization [employer] Care Team Providers Care Library Technology Instructor Name Role Phone Provider, Unknown Primary Care [...] on filedocumented in this encounter Care Teams Library Technology Instructor Relationship Specialty Start Date End Date Provider, Unknown UNKNOWN PCP - General 12/03/23 documented as of this encounter
--- OUTSIDE RECORDS SUMMARY | 2024-05-05 13:52 | XMS_ITS | Encounter Summary ---
Author Organization [employer] Care Team Providers Care Neuro Ophthalmologist Name Role Phone Provider, Unknown Primary Care [...] on filedocumented in this encounter Care Teams Neuro Ophthalmologist Relationship Specialty Start Date End Date Provider, Unknown UNKNOWN PCP - General 12/03/23 documented as of this encounter
--- OUTSIDE RECORDS SUMMARY | 2024-05-05 13:52 | XMS_ITS | Encounter Summary ---
Author Organization [facility] Address [address] [place] [address] Phone Care Team Providers Care Automotive Drivability Technician Name Role Phone Provider, Unknown Primary Care Provider Unavaila ble Reason for Referral * Radiology Services (Routine) - Closed Specialty Diagnoses / Procedures Referred By Contac t Referred To Contact Radiology Diagnoses Physical exam, pre-employment Procedures XR CHEST SINGLE VIEW Isaías Calderon [address] [address] Phone: tel: fax: Referral ID Status Reason Start Date Expiration Date Visits Re quested Visits Authorized [id number] Closed 12/03/2023 1 1 Reason for Visit * Radiology Services (Routine) - Closed Specialty Diagnoses / Procedures Referred By Contac t Referred To Contact Radiology Diagnoses Physical exam, pre-employment Procedures XR CHEST SINGLE VIEW Isaías Calderon [address] [address] Phone: tel: fax: Referral ID Status Reason Start Date Expiration Date Visits Re quested Visits Authorized [id number] Closed 12/03/2023 1 1 Encounter Details Date Type Department Care Team (Late st Contact Info) Description 12/03/2023 11:03 AM CDT Hospital Encounter [facility] Diagnostic Radiology [address] [facility] [place] [address] Isaías Calderon [address] [facility] [address] [place] [address] Discharge Disposition: Discharged to home or Selfcare [...] AM T: ??12/05/2023 8:22 AM Report ID: [id number] Reading Location: ??[id number] Procedure Note Yifan Allan MD - 12/05/2023 [...] by Yifan Allan M.D. JR: Report ID: [id number] Reading Location: [place] [id number] IMPRESSION: No radiographic evidence of acute cardiopulmonary disease us Isaías HER DIAGNOSTIC ORDERABLES F inal Result documented in this encounter Visit Diagnoses Diagnosis Physical exam, pre-employment Health examination of defined subpopulation documented in this encounter Care Teams Automotive Drivability Technician Relationship Specialty Start Date End Date Provider, Unknown UNKNOWN PCP - General 12/03/23 documented as of this encounter
--- OUTSIDE RECORDS SUMMARY | 2024-05-05 13:52 | XMS_ITS | Encounter Summary ---
Author Organization [facility] Address [address] [place] [address] Phone Care Team Providers Care Western Tack Assembly Line Worker Name Role Phone Provider, Unknown Primary Care Provider Unavaila ble Reason for Referral * Radiology Services (Routine) - Closed Specialty Diagnoses / Procedures Referred By Contac t Referred To Contact Radiology Diagnoses Physical exam, pre-employment Procedures XR LUMBAR SPINE 2 OR 3 VIEWS Isaías Calderon [address] [address] Phone: tel: fax: Referral ID Status Reason Start Date Expiration Date Visits Re quested Visits Authorized [id number] Closed 12/03/2023 1 1 * Radiology Services (Routine) - Closed Specialty Diagnoses / Procedures Referred By Contac t Referred To Contact Radiology Diagnoses Physical exam, pre-employment Procedures XR CHEST SINGLE VIEW Isaías Calderon [address] [address] Phone: tel: fax: Referral ID Status Reason Start Date Expiration Date Visits Re quested Visits Authorized [id number] Closed 12/03/2023 1 1 Encounter Details Date Type Department Care Team (Late st Contact Info) Description 12/03/2023 Transcribe Orders [facility] Patient Access Admitting 1 [place] [address] Isaías Calderon [address] [facility] [address] [place], [place] [id number] Physical exam, pre-employment (Primary Dx) Social History [...] AM T: ??12/05/2023 8:22 AM Report ID: [id number] Reading Location: ??[id number] Procedure Note Yifan Allan MD - 12/05/2023 [...] by Yifan Allan M.D. JR: Report ID: [id number] Reading Location: [id number] IMPRESSION: No radiographic evidence of acute cardiopulmonary [...] PM T: ??12/04/2023 12:18 PM Report ID: [id number] Reading Location: ??[id number] Procedure Note Richie Lyn MD - 12/04/2023 [...] Richie Lyn M.D. MF: MF Report ID: [id number] Reading Location: [id number] IMPRESSION: Normal lumbar spine evaluation. Isaías Calderon Kathryn DIAGNOSTIC ORDERABLES F inal Result documented in this encounter Visit Diagnoses Diagnosis Physical exam, pre-employment- Primary Health examination of defined subpopulation Physical exam, pre-employment Health examination of defined subpopulation Physical exam, pre-employment Health examination of defined subpopulation documented in this encounter Care Teams Western Tack Assembly Line Worker Relationship Specialty Start Date End Date Provider, Unknown UNKNOWN PCP - General 12/03/23 documented as of this encounter
== END 2024-05-01 19:51 | disposition home or self-care (01) ==
PROVIDERS: Emergency Provider Registered Nurse
DX: S46.911A Strain of unspecified muscle, fascia and tendon at shoulder and upper arm level, right arm, initial encounter (principal); X58.XXXA Exposure to other specified factors, initial encounter; Y99.0 Civilian activity done for income or pay
CPT/HCPCS: 73030; 99203; G0463